=== PATIENT | male | born 1950 | race Caucasian/White ===

== ENCOUNTER 2024-06-23 16:43 | Observation (INO) | payer OTHER, SELFPAY ==
[2024-06-23] VITALS (23 sets, daily range): BP systolic 99–129; BP diastolic 55–80; BMI 23.5
[2024-06-23] MEDS: ZOFRAN 4 MG IV (11:51)
[2024-06-23 11:53] LABS: % Basophils 0.4 % (0-2); % Eosinophils 0.6 % (0-6); % Immature Granulocytes 0.3 % (0-0.5); % Monocytes 9.8 % (1.7-9.3); % Neutrophils 66.9 % (42.2-75.2); Absolute Eosinophils 0.1 10^3/uL (0-0.7); Absolute Monocytes 0.9 10^3/uL (0.1-0.6); Hematocrit 39.6 % (39.0-52.0); Hemoglobin 13.7 g/dL (13.0-18.0); Mean Corp Hgb Conc. 34.6 g/dL (33.0-37.0); Mean Corpuscular Volume 92.5 fL (80.0-94.0); Nucleated Red Blood Cells % 0 % (-); Platelet Count 251 10^3/uL (130-400); Red Blood Cell Count 4.28 10^6/uL (4.70-6.10); Red Cell Dist. Width 12.6 % (11.5-14.5); White Blood Cell Count 8.9 10^3/uL (4.8-10.8)
--- NOTE | 2024-06-23 11:58 | ED.GENMED ---
History of Present Illness
General
Chief Complaint: Dizziness
Source: patient
Exam Limitations: none
Time Seen by Provider: 06/23/24 11:43
Nursing documentation reviewed up to this point in time: agreed with
History of Present Illness
History of Present Illness:
Patient presents to ED secondary to witnessed syncope x 2, while he was at [employer]'s office this morning. Patient is currently taking doxycycline after tooth extraction last week. Patient states that he was at his baseline health this
morning, had breakfast, and had no symptoms or complaints when he presented to [employer]'s office. While in the office, patient reports feeling dizzy, lightheaded, sweaty, and nauseous. Patient had a witnessed syncopal episode at that time.
Denies injury from syncope. 911 dispatch to office. When paramedics arrived at scene, patient was found to be hypotensive, bradycardic and ill-appearing. As patient was attended to on the monitor, patient reported 'not feeling well', after which
he had recurrent syncopal episode. During that time, on the monitor, there was 'approximate 30 sec pause', until patient woke up on his own. At the time of evaluation ED, patient states that he still feels dizzy and nauseous. Denies preceding
chest palpitations or chest pain. Denies previous history of similar symptoms. Patient has no previous medical history and currently does not take any medications. Denies recent travel or surgery. Denies leg pain or swelling. Denies back pain.
There is history of CAD, requiring pacemaker.
Past History
Past History
ED Past Medical History: GERD
ED Past Surgical History: Orthopedic (rotator cuff), Tonsilectomy and Other (Vein stripping)
Social History
Tobacco: Non-smoker
Personal:
Living: with family
Employment: Employed
Family History
Family History: Other (Noncontributory)
Review of Systems
Review of Systems
Allergies reviewed?: Yes
All Other Systems: ROS reviewed and negative except as documented in HPI and ROS
Constitutional: Reports no symptoms
EENT: Reports no symptoms
Respiratory: Reports no symptoms
Cardiac: Reports diaphoresis and syncope
ABD/GI: Reports nausea and vomiting
: Reports no symptoms
Musculoskeletal: Reports no symptoms
Skin: Reports no symptoms
Neurological: Reports dizzy
Phy Exam
Physical Exam
Physical Exam:
Physical Exam
General: no apparent distress, not acutely ill
Neck: supple. no meningeal signs. normal psoterior pharynx
Heart: s1/s2 regular rate and rhythm, no murmur. equal radial pulses.
Lungs: no acute respiratory distress. clear bilaterally
Abdomen: normal bowel sounds. not tender. no CVAT
Neuro: alert and oriented. no focal neurological deficits
Skin: no rash
Psychiatric: well kept. interactive and cooperative
Extremities: no edema. no calf tenderness. negative homans. good distal pulses
Course
Orders/Labs/Results
Orders:
Orders
06/23/24 11:26
Electrocardiogram (*1) Urgent
Reason for Study: Syncope
06/23/24 11:27
EKG- Treatment ONCE
06/23/24 11:28
Complete Blood Count/With Diff Urgent
Comprehensive Metabolic Panel Urgent
Magnesium Urgent
Comment: ADD ON
Troponin I Urgent
06/23/24 11:48
Ondansetron Injectable [Zofran] 4 mg .ROUTE .STK-MED ONE
06/23/24 11:50
Ondansetron Injectable [Zofran] 4 mg IV NOW STA
06/23/24 11:55
CARDIOLOGY CONSULT Urgent
Consulting Provider: Hadley Fonseca
Was physician already notified: Yes
Reason for consult: syncope
06/23/24 12:33
Echo 2D MMode Color/Doppler Urgent
Reason for Study: Syncope
06/23/24 12:39
CT Head W/o Iv Contrast Urgent
Comment:
Reason For Exam: dizziness/syncope
06/23/24 Dinner
Regular
At Your Request: Full Participation
06/23/24 15:45
Amoxicillin [Amoxil] 500 mg PO NOW STA
06/23/24 15:53
Admit/Transfer Patient As Directed
Co-Sign Provider:
Level of Care: Observation services
Assign to:: Telemetry
Physician / Group: Joshua Jones
Diagnosis: syncope
Reason for Telemetry: Syncope
Date to Stop Telemetry: 06/25/24
Time to Stop Telemetry: 11:00
PRN Pain Medication Management As Directed
May give lesser potent ordered pain med per pt: Yes
preference::
Protocol:: Medication orders for pain may be administered in a
manner that supports deferring to patient preference
when the pt is:
- Requesting an ordered lesser potent pain medication.
Least to most potent pain medications are defined
as: acetaminophen < NSAID < tramadol < opioids
(morphine, oxycodone, hydromorphone).
- Requesting a lesser dose of the same medication IF
ORDERED.
- Requesting a less intrusive route of administration
if both routes are prescribed by the provider (PO <
IV).
06/23/24 15:55
Code Status As Directed
Resuscitation Status: Full Code
06/23/24 19:17
Activity As Directed
Activity Level: Ambulate
Vital Signs As Directed
Frequency: Per unit guidelines
Weight As Directed
Frequency: Once
DX Deep Vein Thrombosis Video Routine
06/23/24 22:00
Amoxicillin [Amoxil] 500 mg PO TID
06/24/24 04:15
Basic Metabolic Panel IN AM
Cardiovascular Evaluation IN AM
Magnesium IN AM
06/24/24 04:16
Complete Blood Count/No Diff IN AM
06/24/24 18:00
Enoxaparin Sodium [Lovenox] 40 mg SC QPM
06/25/24 11:00
DC Protocol for Telemetry ONCE
Abnormal Lab Results
06/23/24
11:28
RBC 4.28 L 10^6/uL
(4.70-6.10)
MCH 32.0 H pg
(27.0-31.0)
Absolute Monos (auto) 0.9 H 10^3/uL
(0.1-0.6)
Monocytes % 9.8 H %
(1.7-9.3)
Carbon Dioxide 21 L mmol/L
(22-30)
Glucose 136 H mg/dl
(70-99)
06/23/24 11:28
06/23/24 11:28
Vital Signs
Initial and Last Documented VS:
Initial Vital Signs
Temp Pulse Resp BP Pulse Ox
97.3 F 81 16 119/61 100
06/23/24 11:27 06/23/24 11:27 06/23/24 11:27 06/23/24 11:27 06/23/24 11:27
Last Documented Vital Signs
Temp Pulse Resp BP Pulse Ox
97.6 F 76 15 114/62 100
06/24/24 10:36 06/24/24 10:33 06/24/24 10:33 06/24/24 10:33 06/24/24 10:36
MDM/Problems Addressed
MDM/Problems Addressed:
Syncope x 2 with sig. pause noted prehospital. EKG: NSR. Vital signs noted, stable. Discussed with , cardiology, who will come and evaluate the patient.
Patient evaluated by , cardiology. Recommends admission to hospitalist service for further evaluation and treatment.
*EKG
Interpreted by ED Provider?: Yes
EKG Intrepretation Date: 06/23/24
Heart Rate: 80
Rate: normal
Rhythm: sinus
[place]: normal axis
QRS Pattern: right bundle branch block
*Critical Care Note
Total Time (30-74mins, 75-104mins- exclusive of procedures): Not Applicable
ED Attending Note
-
Portions of this chart may have been created with voice recognition software.� Occasional wrong word or��sound alike� substitutions may have occurred due to the inherent limitations of voice recognition software.
Discharge Plan
Departure
Patient Disposition: Admit
Date of Disposition: 06/23/24
Time of Disposition: 13:18
Presentation/result/management discussed w/ accepting MD/DO: Hospitalist
Discharge Problem:
Syncope
Interventions
Interventions:
*Risk Screen - Suicide Last Done: 06/23/24 11:27
*General Assessment Last Done: 06/23/24 11:27
*Neglect/Abuse Screening Last Done: 06/23/24 11:27
*ED COVID-19 Vaccine History Last Done: 06/23/24 11:27
*Nursing Disposition Last Done: 06/24/24 10:49
ED- Neurological Assessment Last Done: 06/23/24 11:36
ED- Cardiac Assessment Last Done: 06/23/24 11:36
ED Swallowing Screen Last Done: 06/23/24 11:36
Discharge Date and Time
Discharge Date/Time: 06/24/24 10:49
--- NOTE | 2024-06-23 12:04 | CON.CAR ---
Addendum entered and electronically signed by Hadley Fonseca MD 06/23/24 13:54:
74 yo male with PMH of prior syncope is admitted with syncope. He as at vet with his cat. Was standing and felt warm/dizziness, then woke up on floor. EMS was called: had another syncope event with EMS presents, with report of 30 sec pause,but no
strips available. Exam with RRR, no murmurs, no edema. TnI<0.012. EKG: NSR, RBBB.
May be vasovagal, but will assess for arrhythmia and structural heart disease. Check echo. Trend tele overnight.
Original Note:
Consultation
Consultation Request
Date/Time Consultation Requested: 06/23/2024 11:55
Date/Time Consultation Performed: 06/23/2024 12:00
Requesting Provider: Dr. Chavarria
Performing Provider: REYNA Demarco for Dr. Fonseca
Reason for Consultation: Syncope
Medical History
-
Chief Complaint: Syncope, sinus pause
History of Present Illness:
Adiel Mercado is a 74-year-old male with prior syncope, GERD and dyslipidemia who presented to the emergency department with a chief complaint of syncope. He was at the vet with his cat when he was standing and felt lightheaded then began to feel
warm. He then felt off and had a dry mouth. He asked for water. He then had a syncopal episode. He still feels dizzy. Per [facility], he had a 30 second pause. There are no cardiac strips with a pauses or significant bradycardia per my
review. He was seen in the ER 2 times in 2019 with syncope. Most recent episode sounded similar where he was standing became lightheaded and passed out. He then had persistent lightheadedness and developed nausea and vomiting. All episodes he
has a prodrome of lightheadedness and feeling warm.
EKG sinus rhythm with right bundle branch block. Right bundle branch block occurred between 2019 and 2023 per review of inpatient and outpatient EKGs.
Past Medical History
Past Medical History: GERD and Hypercholesterolemia
Past Surgical History: Orthopedic and Tonsilectomy
Social History
Tobacco: Former Smoker
Personal:
Living: With Family
Family History
Family History: Reviewed & Not Pertinent (Brother due to cancer. Mother alive and well.)
Allergies / Home Medications
Allergy/AdvReac Type Severity Reaction Status Date / Time
tetracycline [Tetracycline] Allergy facial Verified 07/15/19 06:22
swelling
�Medication �Instructions �Recorded �Confirmed �Type
Lactobacillus rhamnosus GG 10 2 tab PO BID 08/07/11 06/17/19 History
billion cell capsule
ascorbate calcium (vitamin C) 500 2,000 mg PO DAILY 08/07/11 06/17/19 History
mg tablet (Addie-C)
calcium 400 mg 1 tab PO DAILY 08/07/11 06/17/19 History
(carbonate)-magnesium 167 mg
(oxide)-D3 133 unit tablet
(Calcium Magnesium plus D)
ibuprofen 600 mg tablet 600 mg PO PRN PRN pain 08/07/11 06/17/19 History
multivitamin (Daily Multiple 1 ea PO DAILY 08/07/11 06/17/19 History
tablet)
potassium 99 mg tablet 198 mg PO DAILY 08/07/11 06/17/19 History
saw palmetto 160 mg capsule 1 tab PO DAILY 08/07/11 06/17/19 History
phenylephrine HCl 10 mg tablet 10 mg PO HS 08/02/13 06/17/19 History
(Sudafed PE)
Digestive Enzymes Capsule 1 cap PO BID 06/17/19 06/17/19 History
famotidine 40 mg tablet 40 mg PO BID 06/17/19 06/17/19 History
mv-min-vit C 1,000 1 dose PO DAILY 06/17/19 06/17/19 History
en-tqkxsxwsd-vncyqu-herb 124 50 mg
efferves tablet (Airborne)
Review of Systems
-
History Source: Patient
All other systems: Negative unless noted
Constitutional: Fatigue
EENT: No Symptoms
Respiratory: No Symptoms
Cardiac: No Symptoms
Abdomen/GI: Nausea
: No Symptoms
Musculoskeletal: No Symptoms
Skin: No Symptoms
Neurological: Dizzy
Endocrine: No Symptoms
Hematologic/Lymphatic: No Symptoms
Physical Exam
Vital Signs
Temp Pulse Resp BP Pulse Ox
97.3 F 65 16 119/61 100
06/23/24 11:27 06/23/24 11:36 06/23/24 11:27 06/23/24 11:27 06/23/24 11:36
Lab Results
06/23/24 11:28
Physical Exam
General: Well Developed, Well Nourished, No Apparent Distress and Comfortable
HEENT: Normocephalic, Anicteric and Moist Mucous Membranes
Respiratory: Clear and Non Labored Respirations
Cardiac: S1/S2 and Regular Rhythm
Breast: Deferred by me
GI: Soft, Non Tender, Non Distended and Normal Bowel Sounds
Rectal: Deferred by Provider
Genito-urinary: No Costovertebral Tender
Musculoskeletal: No Clubbing, No Cyanosis and No Edema
Skin: Warm and Dry
Neuro: AO x 3
Hematologic/Lymphatic: No Lymphadenopathy
Psych: Calm
Impression / Plan
-
IMPRESSION/PLAN: 74M with prior syncope, GERD, and HLD presents after a syncopal episode while at the vet with his cat
Syncope
-Similar to prior episodes of vasovagal syncope
-Telemetry remained stable without heart block
-Update echocardiogram
RBBB, seen on outpatient PCP EKG in 2023
Data Reviewed
-
EKG: Report Reviewed by me
Medical Tests (Nuc Med, Echo etc): Report Reviewed by me
Labs: Labs Reviewed by me
Old Records: Reviewed
[2024-06-23 12:16] LABS: ALT (SGPT) 18 U/L (0-50); AST (SGOT) 25 U/L (17-59); Albumin 4.1 g/dl (3.5-5.0); Alkaline Phosphatase 78 U/L (38-126); Blood Urea Nitrogen 13 mg/dl (9-20); Calcium 8.9 mg/dl (8.4-10.2); Carbon Dioxide 21 mmol/L (22-30); Chloride 103 mmol/L (98-107); Glucose 136 mg/dl (70-99); Magnesium 2.1 mg/dl (1.6-2.3); Potassium 4.2 mmol/L (3.5-5.1); Sodium 137 mmol/L (135-145); Total Protein 6.7 g/dl (6.3-8.2); eGFR > 60.00
[2024-06-23 12:24] LABS: Troponin I < 0.012 ng/ml
--- NOTE | 2024-06-23 14:53 | HPS.HSE ---
Family Physician
-
Family Physician: Orlin Camara PA-C
Chief Complaint
-
syncopal episode
History of Present Illness
Patient is a 74-year-old male with past medical history significant for GERD who presented to [facility] ED for evaluation of syncopal episode. Patient reports having syncopal episodes in the past as far back as the 1970s, all have been believed to
be a vagal response. He notes a 'trigger' is when it is hot. Prior syncopal episode was approximately a month ago just before the holidays. Patient today states he was in the vets office with cat, standing when he became warm and dizzy when he had
syncopal episode, he recalls waking up on floor. reports office was hot so they assume it was a trigger to his vagal response. EMS was called by staff and when assessing patient to bring to ED patient had a second episode of syncope with
monitor in place. Per EMS monitor recorded a 30 second pause. Patient reports always having prodrome of lightheadedness and warmth prior to syncopal episode. Patient reports having associated nausea and vomiting for the first time with today's
episode. Patient denies any other associated symptoms, no heart palpitations, chest pain, or shortness of breath.
Medical History
Past Medical History
Past Medical History: Reports None
Additional Past Medical History:
GERD
Past Surgical History: Reports None
Additional Past Surgical History:
right rotator cuff repair
tonsillectomy
bilateral leg varicose veins
tooth extraction
Social History
Tobacco: Former Smoker (quit in the )
Alcohol: Occasional
Drug: None
Personal:
Living: With Family
Employment: Employed
Family History
Family History: Other (Father: Pacemaker, DM II, Prostate cancer; Mother: dementia; Brother: multiple myeloma)
Allergies / Home Medications
Allergies reflects when Allergies were last updated in [facility].
Home Medications with original date entered in [facility]
Allergy/Medication List:
Allergies
Allergy/AdvReac Type Severity Reaction Status Date / Time
tetracycline [Tetracycline] Allergy facial Verified 07/15/19 06:22
swelling
Home Medications
Lactobacillus rhamnosus GG 10 billion cell capsule 2 tab PO BID 08/07/11
ascorbate calcium (vitamin C) 500 mg tablet (Addie-C) 2,000 mg PO DAILY 08/07/11
calcium 400 mg (carbonate)-magnesium 167 mg (oxide)-D3 133 unit tablet (Calcium Magnesium plus D) 1 tab PO DAILY 08/07/11
potassium 99 mg tablet 198 mg PO DAILY 08/07/11
saw palmetto 160 mg capsule 1 tab PO DAILY 08/07/11
digestive enzymes 1 cap PO DAILY 06/17/19
acetaminophen 325 mg tablet (Tylenol) 650 mg PO Q6HPRN PRN mild pain 06/23/24
amoxicillin 500 mg capsule 500 mg PO TID tooth infection 06/23/24
Review of Systems
-
History Source: Patient
Constitutional: Reports No Symptoms
EENT: Reports No Symptoms
Respiratory: Reports No Symptoms
Cardiac: Reports No Symptoms
Abdomen/GI: Reports No Symptoms
: Reports No Symptoms
Musculoskeletal: Reports No Symptoms
Skin: Reports No Symptoms
Neurological: Reports No Symptoms
Endocrine: Reports No Symptoms
Hematologic/Lymphatic: Reports No Symptoms
Psych: Reports No Symptoms
Physical Exam
Vital Signs
Vital Signs
Temp Pulse Resp BP Pulse Ox
97.3 F 81 17 115/67 99
06/23/24 11:27 06/23/24 13:20 06/23/24 13:20 06/23/24 13:20 06/23/24 13:20
Physical Exam
General: Well Developed, Well Nourished, No Apparent Distress, Comfortable and Conversant
HEENT: NormoCephalic, Moist mucous membranes, Atraumatic, PERRLA, Nose Appears Normal and Ears Appear Normal
Respiratory: Clear
Cardiac: S1/S2 and Regular Rhythm; No Murmur, Rub or Gallop
Breast: Deferred by me
GI: Soft, Non Tender, Non Distended and Normal Bowel Sounds; No Organomegaly
Rectal: Deferred by Provider
Genito-urinary: Deferred by me
Musculoskeletal: No Clubbing, No Cyanosis and No Edema
Skin: Warm and IV/Catheter Site; No Rash
Neuro: Awake, Alert, AO x 3 and Nonfocal/grossly intact
Psych: Calm and Intact Judgment/Insight
Laboratory Results
-
06/23/24 11:28
06/23/24 11:
Laboratory Results
Total Bilirubin 1.0 mg/dl (0.2-1.3) 06/23/24 11:
AST 25 U/L (17-59) 06/23/24 11:
ALT 18 U/L (0-50) 06/23/24 11:28
Alkaline Phosphatase 78 U/L (38-126) 06/23/24 11:
Troponin I < 0.012 ng/ml 06/23/24 11:
Data Reviewed
-
Medical Tests (Nuc Med, Echo, EKG etc): Report Reviewed by me (EKG: NORMAL SINUS RHYTHM RIGHT BUNDLE BRANCH BLOCK; ECHO:Normal biventricular size and systolic function without regional wall motion abnormality. Estimated LVEF 60-65%. Mild/moderate
mitral regurgitation. Mild/moderate tricuspid regurgitation. Mildly elevated PASP. Estimated pulmonary artery )
Lab Data: Labs Reviewed by me
Impression/Plan
-
IMPRESSION/PLAN:
#syncope
EKG: NORMAL SINUS RHYTHM
RIGHT BUNDLE BRANCH BLOCK
ABNORMAL ECG
ECHO: Normal biventricular size and systolic function without regional wall motion
abnormality. Estimated LVEF 60-65%.
Mild/moderate mitral regurgitation.
Mild/moderate tricuspid regurgitation. Mildly elevated PASP. Estimated
pulmonary artery pressure of 38 mmHg assuming a right atrial pressure of 3
mmHg.
- Admit to telemetry
- consult cardiology
#GERD
Code status: Full code
DVT Prophylaxis: Lovenox sq
[2024-06-23] MEDS: AMOXIL 500 MG PO ×2 (15:51→21:04)
--- NOTE | 2024-06-23 16:36 | W.PN.UPDATE ---
Update Note
Progress Note Update
Attending addendum
Patient seen independently
74-year-old man with a syncopal episode. Patient reports having syncopal episodes for the last 50 years, all have been believed to be a vagal response. His 'trigger' is when it is hot. Prior syncopal episode was approximately a month ago. That one
was extensively worked up, and found to be vasovagal. Patient today states he was standing when he became warm and dizzy then he had syncopal episode, he recalls waking up on floor. He feels he was dehydrated today. EMS responded. The patient had
a second episode of syncope with monitor in place. Per EMS monitor there was a recorded a 30 second pause. Patient reports always having prodrome of lightheadedness and warmth prior to syncopal episode. Patient reports having associated nausea and
vomiting for the first time with today's episode. Patient denies any other associated symptoms, no heart palpitations, chest pain, or shortness of breath. He says he has had low blood pressure his whole life. A the time of my interview he was
comfortable.
Past Medical History
GERD
right rotator cuff repair
tonsillectomy
bilateral leg varicose veins
tooth extraction
Physical Exam
General: Well Developed, Well Nourished, No Apparent Distress, Comfortable and Conversant
HEENT: NormoCephalic, Moist mucous membranes, Atraumatic, PERRLA, Nose Appears Normal and Ears Appear Normal
Respiratory: Clear
Cardiac: S1/S2 and Regular Rhythm; No Murmur, Rub or Gallop
GI: Soft, Non Tender, Non Distended and Normal Bowel Sounds; No Organomegaly
Psych: Calm and Intact Judgment/Insight
IMPRESSION/PLAN:
1. syncope, in setting of lifelong episodes of vasovagal syncope, previously extensively worked up, triggered by same known trigger as past syncopal episodes.
Troponin negative. If there was a 30 second episode of asystole, troponin would likely show some increase.
EKG: NORMAL SINUS RHYTHm with RIGHT BUNDLE BRANCH BLOCK
ECHO: Normal biventricular size and systolic function without regional wall motion abnormality. Estimated LVEF 60-65%.
Mild/moderate mitral regurgitation.
Mild/moderate tricuspid regurgitation. Mildly elevated PASP.
Estimated pulmonary artery pressure of 38 mmHg assuming a right atrial pressure of 3
Cardiology consulted
Cycle troponins
Overnight on tele
Code status: Full code
DVT Prophylaxis: Lovenox sq
--- NOTE | 2024-06-23 23:30 | PTCARENOTE ---
Assumed care of patient at ~2330. Nursing assessment completed and as documented. Patient independent and offers no complaints at this time. NSR on telemetry. Call aguiar within reach, VSS, care ongoing.
[2024-06-24] VITALS (7 sets, daily range): BP systolic 91–119; BP diastolic 44–69
[2024-06-24 04:28] LABS: Hematocrit 38.9 % (39.0-52.0); Hemoglobin 12.8 g/dL (13.0-18.0); Mean Corp Hgb Conc. 32.9 g/dL (33.0-37.0); Mean Corpuscular Hgb 32.1 pg (27.0-31.0); Mean Corpuscular Volume 97.5 fL (80.0-94.0); Mean Platelet Volume 8.8 fL (7.4-10.4); Platelet Count 229 10^3/uL (130-400); Red Blood Cell Count 3.99 10^6/uL (4.70-6.10); Red Cell Dist. Width 12.8 % (11.5-14.5); White Blood Cell Count 8.6 10^3/uL (4.8-10.8)
[2024-06-24 04:52] LABS: Blood Urea Nitrogen 12 mg/dl (9-20); Calcium 9.1 mg/dl (8.4-10.2); Carbon Dioxide 28 mmol/L (22-30); Chloride 105 mmol/L (98-107); Estimated Creatinine Clearance 111 ml/min; Glucose 92 mg/dl (70-99); HDL Cholesterol 41 mg/dl; LDL Cholesterol, Calculated 61 mg/dl; Magnesium 2.2 mg/dl (1.6-2.3); Potassium 4.3 mmol/L (3.5-5.1); Sodium 139 mmol/L (135-145); Total Cholesterol 116 mg/dl (50-199); Triglyceride 74 mg/dl (10-149); Very Low Density Lipoprotein 14 mg/dl (0-30); eGFR > 60.00
[2024-06-24] MEDS: AMOXIL 500 MG PO (08:25)
[2024-06-24 08:48] LABS: COVID-19 Antigen Negative (Negative)
--- NOTE | 2024-06-24 09:17 | W.PN.CD ---
Today's Communication / Plan
-
continue lifestyle modifications
no further cardiac recommendations
I will sign off
Impression / Plan
-
IMPRESSION/PLAN: 74M with prior syncope, GERD, and HLD presents after a syncopal episode while at the vet with his cat
Syncope
-Similar to prior episodes of vasovagal syncope that have occured since his late teen years
-Telemetry remained stable without heart block
-Continue lifestyle modifications: compression socks, hydration(especially with low normal bp at times). He is aware of what his prodromal symptoms are and sits or lays down at the onset
-No further cardiac recommendations
RBBB, seen on outpatient PCP EKG in 2023
subjective:
he is feeling well, no complaint of dizziness or sob.
TTE 06/23/24:Normal biventricular size and systolic function without regional wall motion
abnormality. Estimated LVEF 60-65%.
Mild/moderate mitral regurgitation.
Mild/moderate tricuspid regurgitation. Mildly elevated PASP. Estimated
pulmonary artery pressure of 38 mmHg assuming a right atrial pressure of 3
mmHg.
No prior study available for comparison.
Physical Exam
Vital Signs/Labs
Vital Signs
Temp Pulse Resp BP Pulse Ox
98.3 F 69 16 119/64 95
06/24/24 03:32 06/24/24 09:00 06/24/24 09:00 06/24/24 08:27 06/24/24 03:32
06/23/24 06/24/24 06/25/24
06:59 06:59 06:59
Actual Weight 83.1 kg
06/24/24 04:16
06/24/24 04:15
Magnesium 2.2 mg/dl (1.6-2.3) 06/24/24 04:15
Triglycerides 74 mg/dl (10-149) 06/24/24 04:15
LDL Cholesterol, Calc 61 mg/dl 06/24/24 04:15
VLDL Cholesterol, Calc 14 mg/dl (0-30) 06/24/24 04:15
HDL Cholesterol 41 mg/dl 06/24/24 04:15
LAB Results
06/23/24
11:28
Troponin I < 0.012
Physical Exam
Constitutional: No acute distress
Cardiovascular: Rhythm & rate is regular, Pedal edema is absent, JVD pressure is normal, Systolic murmur absent and Diastolic murmur absent
Respiratory: Respiratory effort normal, Lungs clear to auscul., Wheeze Absent and Crackles Absent
Neuro/Psych: AO x 3
Data Reviewed
-
Date of Service: June 24, 2024
Medical Decision Making: Review of Case with other Provider (Updated resident, ok to go home from a cardiac perspective)
EKG: Other (Tele Sinus rhythm)
--- NOTE | 2024-06-24 10:03 | W.PN.HOSP.TC ---
Addendum entered and electronically signed by Radha Bauer MD 06/24/24 12:56:
total DC time 36 min
Addendum entered and electronically signed by Radha Bauer MD 06/24/24 10:34:
I saw and evaluated the patient. I reviewed the resident�s note and agree with findings and plan as documented in the resident�s note.
A/P:
# Syncope, likely vasovagal
ECG NSR w/ RBBB,
echo WNL: EF of 60-65%, no valvular heart disease.
Head CT within normal limits
Orthostatic vital sign was checked by RN, within normal limits
Cardiology rec to continue lifestyle modifications for chronic history of vasovagal syncope
# Recent wisdom tooth extraction - continued on OP amoxicillin.
Original Note:
Today's Communication/Plan
-
D/c home today
Assessment / Plan
Assessment / Plan
74 year old male
#Syncope, likely vasovagal
- ECG NSR w/ RBBB, echo w/ EF of 60-65%, no aortic stenosis.
- Head CT within normal limits
- Cardiology rec to continue lifestyle modifications for chronic history of vasovagal syncope
#Recent wisdom tooth extraction - continued on OP amoxicillin.
Discharge today
Anticipated Discharge: Today
Subjective/Interval History
-
Fells well this morning. No new syncopal or presyncopal episodes. No shortness of breath, dizziness, chest pain, vision changes, or lightheadedness.
Objective Data
-
Labs:
Laboratory Results
06/24/24 06/24/24
04:15 04:16
WBC 8.6
Hgb 12.8 L
Hct 38.9 L
Plt Count 229
Sodium 139
Potassium 4.3
Chloride 105
Carbon Dioxide 28
BUN 12
Creatinine 0.7
Glucose 92
Calcium 9.1
Vital Signs:
Vital Signs
Temp Pulse Resp BP Pulse Ox
98.3 F 69 16 119/64 95
06/24/24 03:32 06/24/24 09:00 06/24/24 09:00 06/24/24 08:27 06/24/24 03:32
Review of Systems
-
History Source: Patient
All other systems: Reviewed and negative
Constitutional: Reports No Symptoms
EENT: Reports No Symptoms Reported
Respiratory: Reports No Symptoms
Cardiac: Reports No Symptoms
Abdomen/GI: Reports No Symptoms
Breast: Reports N/A
Genitourinary: Reports No Symptoms
Musculoskeletal: Reports No Symptoms
Neuro: Reports No Symptoms
Physical Exam
-
General: Well Developed, Well Nourished, No Apparent Distress, Comfortable and Conversant
HEENT: Normocephalic, Atraumatic, Moist Mucous Membranes, Anicteric, [place] Conjunctivae, PERRLA, Nose Appears Normal and Ears Appear Normal
Respiratory: Clear to Auscultation; Negative Wheezes, Rales or Rhonchi
Cardiac: Regular Rhythm, S1/S2 and Other (no carotid bruits); Negative Murmur or Rub
Breast: N/A
GI: Soft, Nontender, Nondistended and Normal Bowel Sounds
Genito-urinary: Deferred by me
Musculoskeletal: No Clubbing, No Cyanosis and No Edema
Neuro: Awake, Alert, Oriented and Nonfocal/Grossly Intact
Psych: Calm
--- NOTE | 2024-06-24 10:03 | W.DCSUMMARY ---
Documented by User: Sahil Fields MD, Resident 06/24/24 11:32
Discharge Summary
Discharge Data
Date of Admission: 06/23/24
Date of Discharge: 06/24/24
Total time spent discharging patient (in min): <30min
-
Pending Results: No
Hospital Course
Discharging Physician : Dr. Sahil Fields, Dr. Radha Bauer
Disposition : Home
Primary care physician : Orlin Camara
Principal Discharge diagnosis : Vasovagal Syncope
Chronic Discharge diagnosis : none
Hospital Course :
Adiel Mercado [facility] after an episode of syncope with a subsequent syncopal episode with pauses on rhythm strips. He has a chronic history of vasovagal syncope and this episode was consistent with those prior episodes. He had
complete symptomatic recovery while in the ED. ECG and Echo were done which did not demonstrate any concerning pathology. He was seen by cardiology who recommended he continue with his symptomatic management and avoidance of triggers for vasovagal
syncope. A Head CT was checked which showed no acute intracranial abnormality. he was discharged home the following morning with instructions to follow up with his primary care physician in 1 week.
Important imaging findings :
EKG: NORMAL SINUS RHYTHM
RIGHT BUNDLE BRANCH BLOCK
ABNORMAL ECG
ECHO: Normal biventricular size and systolic function without regional wall motion
abnormality. Estimated LVEF 60-65%.
Mild/moderate mitral regurgitation.
Mild/moderate tricuspid regurgitation. Mildly elevated PASP. Estimated
pulmonary artery pressure of 38 mmHg assuming a right atrial pressure of [address] Head W/o Iv Contrast:
Unenhanced CT imaging of the head reveals no findings to suggest recent infarction, intracranial hemorrhage, extra-axial fluid collection, mass effect or midline shift. The ventricles, cisterns and sulci are slightly prominent commensurate with age.
The brainstem and posterior fossa structures demonstrate no significant focal abnormality.
Procedure findings : none
Discharge Plan
-
Patient Disposition: Home (Routine Discharge)
Discharge Diagnosis/Procedures: Vasovagal Syncope
Condition: Good
Diet: No restrictions
Activity: As tolerated
Driving Restrictions: As prior to admission
Bathing Restrictions: None
Referrals:
Orlin Camara PA-C [Family Provider] - in less than 1 week
Prescriptions:
Continued
potassium 99 MG tablet
198 mg PO DAILY
saw palmetto 160 MG capsule
1 tab PO DAILY
ascorbate calcium (vitamin C) [Addie-C] 500 MG tablet
2,000 mg PO DAILY
Lactobacillus rhamnosus GG 1 EACH capsule
2 tab PO BID
Calcium Magnesium plus D 1 EACH tablet
1 tab PO DAILY
digestive enzymes Capsule
1 cap PO DAILY
amoxicillin 500 mg Capsule
500 mg PO TID
acetaminophen [Tylenol] 325 mg Tablet
650 mg PO Q6HPRN PRN (Reason: mild pain)
Discharge Orders:
Discharge Patient (As Directed); Ordered 06/24/24
Ordered By: Sahil Fields
Discharge Date and Time
Discharge Date/Time: 06/24/24 10:50
Print Language: LATVIAN

Documented by User: Radha Bauer MD 06/24/24 12:55
Discharge Summary
Discharge Data
Date of Admission: 06/23/24
Date of Discharge: 06/24/24
Hospital Course
Discharging Physician : Dr. Sahil Fields, Dr. Radha Bauer
Disposition : Home
Primary care physician : Orlin Camara
Principal Discharge diagnosis : Vasovagal Syncope
Chronic Discharge diagnosis : none
Hospital Course :
Adiel Mercado was brought in to the ED after an episode of syncope with a subsequent syncopal episode with pauses on rhythm strips. He has history of vasovagal syncope and this episode was consistent with prior vasovagal episode. He had
complete recovery while in the ED. His ECG, Echo and youth nutritional monitor ruled out cardiac syncope. He was seen and cleared by cardiology. He has been informed to avoidance triggers that precipitated his vasovagal syncope. His head CT was checked
which showed no acute intracranial abnormality. He was discharged home with instructions to follow up with his primary care physician in 1 week.
Important imaging findings :
EKG: NORMAL SINUS RHYTHM
RIGHT BUNDLE BRANCH BLOCK
ABNORMAL ECG
ECHO: Normal biventricular size and systolic function without regional wall motion
abnormality. Estimated LVEF 60-65%.
Mild/moderate mitral regurgitation.
Mild/moderate tricuspid regurgitation. Mildly elevated PASP. Estimated
pulmonary artery pressure of 38 mmHg assuming a right atrial pressure of [address] Head W/o Iv Contrast:
Unenhanced CT imaging of the head reveals no findings to suggest recent infarction, intracranial hemorrhage, extra-axial fluid collection, mass effect or midline shift. The ventricles, cisterns and sulci are slightly prominent commensurate with age.
The brainstem and posterior fossa structures demonstrate no significant focal abnormality.
Procedure findings : none
Discharge Plan
-
Patient Disposition: Home (Routine Discharge)
Discharge Diagnosis/Procedures: Vasovagal Syncope
Condition: Good
Diet: No restrictions
Activity: As tolerated
Driving Restrictions: As prior to admission
Bathing Restrictions: None
Referrals:
Orlin Camara PA-C [Family Provider] - in less than 1 week
Prescriptions:
Continued
potassium 99 MG tablet
198 mg PO DAILY
saw palmetto 160 MG capsule
1 tab PO DAILY
ascorbate calcium (vitamin C) [Addie-C] 500 MG tablet
2,000 mg PO DAILY
Lactobacillus rhamnosus GG 1 EACH capsule
2 tab PO BID
Calcium Magnesium plus D 1 EACH tablet
1 tab PO DAILY
digestive enzymes Capsule
1 cap PO DAILY
amoxicillin 500 mg Capsule
500 mg PO TID
acetaminophen [Tylenol] 325 mg Tablet
650 mg PO Q6HPRN PRN (Reason: mild pain)
Discharge Orders:
Discharge Patient (As Directed); Ordered 06/24/24
Ordered By: Sahil Fields
Discharge Date and Time
Discharge Date/Time: 06/24/24 10:50
Print Language: LATVIAN
== END 2024-06-24 10:50 | disposition home or self-care (01) ==
LOC: ED 16:43
PROVIDERS: Nurse Practitioner Family; ADMITTING PHYSICIAN Internal Medicine; ATTENDING PHYSICIAN Internal Medicine; CONSULT PHYSICIAN Internal Medicine; EMERGENCY PHYSICIAN Emergency Medicine; FAMILY PHYSICIAN Physician Assistant Medical
DX: R55 Syncope and collapse (principal); R42 Dizziness and giddiness; K21.9 Gastro-esophageal reflux disease without esophagitis; R11.2 Nausea with vomiting, unspecified; R00.1 Bradycardia, unspecified; I95.9 Hypotension, unspecified; I25.10 Atherosclerotic heart disease of native coronary artery without angina pectoris; R61 Generalized hyperhidrosis; I08.1 Rheumatic disorders of both mitral and tricuspid valves; R94.31 Abnormal electrocardiogram [ECG] [EKG]; I45.10 Unspecified right bundle-branch block; E78.00 Pure hypercholesterolemia, unspecified; Z87.891 Personal history of nicotine dependence; Z83.3 Family history of diabetes mellitus; Z82.49 Family history of ischemic heart disease and other diseases of the circulatory system; Z80.42 Family history of malignant neoplasm of prostate; Z80.6 Family history of leukemia; Z88.1 Allergy status to other antibiotic agents; Z95.0 Presence of cardiac pacemaker; Z11.52 Encounter for screening for COVID-19
CPT/HCPCS: 70450; 80048; 80053; 80061; 83735; 84484; 85025; 85027; 87070; 87502; 87811; 93005; 93306; 96374; 99285

== ENCOUNTER → 2025-03-01 07:45 | Outpatient (REF) | payer OTHER, SELFPAY | LOC: DHVS 07:45 | PROVIDERS: ATTENDING PHYSICIAN Physician Assistant Medical | DX: M54.50 Low back pain, unspecified (principal); R25.2 Cramp and spasm; M25.552 Pain in left hip | CPT/HCPCS: 72110; 73502 ==